=== PATIENT | female | born 1985 | race American Indian/Alaskan Native ===

== ENCOUNTER 2019-04-26 14:17 | Emergency (ER) | payer OTHER ==
--- NOTE | 2019-04-26 14:32 | Event Note ---
ED Screening Note Date of service: 04/26/19 Time: 14:30 ED Screening Note: 34 y o with paraguard IUD statind pelvic cramping and spotting x 4 days stating she cant feel her iud strings This initial assessment/diagnostic orders/clinical plan/treatment(s) is/are subject to change based on patients health status, clinical progression and re- assessment by fellow clinical providers in the ED. Further treatment and workup at subsequent clinical providers discretion. Patient/guardian urged not to elope from the ED as their condition may be serious if not clinically assessed and managed. Initial orders include: ua upt
[2019-04-26 15:18] LABS: HCG Qualitative,Urine Positive (Negative)
[2019-04-26 15:21] LABS: Bilirubin,Urine NEG (Negative); Blood,Urine LG (Negative); Color,Urine Yellow (Yellow); Mucus,Urine 1+ /HPF
[2019-04-26 15:29] LABS: RBC,Urine > 182.0 /HPF (0.0-6.0)
[2019-04-26 18:34] VITALS: BP 134/80
--- NOTE | 2019-04-26 21:42 | Ultrasound Report ---
Transabdominal and transvaginal OB pelvic ultrasound INDICATION / CLINICAL INFORMATION: Vaginal bleeding. COMPARISON: None available. FINDINGS: TRANSABDOMINAL: The uterus measures 9.8 x 4.6 x 8.0 cm. I do not identify an intrauterine . Neither ovary is seen. No abnormal mass or fluid collection is identified. Images of the urinary blad ty are normal. TRANSVAGINAL: There is an IUD well situated within the endometrial cavity. I do not identify an IUP. No fibroids are seen. The right ovary measures 3.5 x 2.3 x 3.6 cm and the left ovary 3.4 x 2.1 x 3.5 cm. There are a couple of subcentimeter follicles in the left ovary. I see no evidence of an extraova ly mass or free fluid. IMPRESSION: 1. No evidence of intrauterine or extrauterine . 2. IUD is well situated within the endometrial cavity. Signer Name: Derrek Wilson MD Signed: 04/26/2019 9:37 PM Workstation Name: [id number]
--- NOTE | 2019-04-26 22:04 | Emergency Department Report ---
ED Female HPI - General Chief complaint: Vaginal Bleeding Stated complaint: PELVIC PAIN/BLEEDING/IUD ISSUES Time Seen by Provider: 04/26/19 14:30 Source: patient Mode of arrival: Ambulatory Limitations: No Limitations - History of Present Illness Initial comments: pt is a 34 y o with paraguard IUD statind pelvic cramping and spotting x 4 days stating she cant feel her iud strings LMP 2 months ago , pt is P:4 A:q MD Complaint: vaginal bleeding Onset/Timin -: days(s) Location: suprapubic Radiation: suprapubic Severity: moderate Severity scale (0 -10): 4 Consistency: constant Improves with: none Worsens with: none Are you Now?: No Associated Symptoms: vaginal bleeding, nausea/vomiting - Related Data Sexually active: Yes Previous Rx's Medication Instructions Recorded Last Taken Type Acetaminophen [Acetaminophen TAB] 650 mg PO Q6HR PRN #30 tablet 04/26/19 Unknown Rx Allergies Allergy/AdvReac Type Severity Reaction Status Date / Time No Known Allergies Allergy Verified 04/26/19 14:20 ED Review of Systems ROS: Stated complaint: PELVIC PAIN/BLEEDING/IUD ISSUES Other details as noted in HPI Constitutional: denies: chills, fever Eyes: denies: eye pain, eye discharge, vision change ENT: denies: ear pain, throat pain Respiratory: denies: cough, shortness of breath, wheezing Cardiovascular: denies: chest pain, palpitations Endocrine: no symptoms reported Gastrointestinal: denies: abdominal pain, nausea, vomiting, diarrhea Genitourinary: urgency, dyspareunia Musculoskeletal: denies: back pain, joint swelling, arthralgia Skin: denies: rash, lesions Neurological: denies: headache, weakness, paresthesias Psychiatric: denies: anxiety, depression Hematological/Lymphatic: denies: easy bleeding, easy bruising ED Past Medical Hx - Past Medical History Previous Medical History?: No - Surgical History Past Surgical History?: No - Social History Smoking Status: Current Every Day Smoker Substance Use Type: Alcohol - Medications Home Medications: Home Medications Medication Instructions Recorded Confirmed Last Taken Type Acetaminophen [Acetaminophen TAB] 650 mg PO Q6HR PRN #30 tablet 04/26/19 Unknown Rx ED Physical Exam - General Limitations: No Limitations (for an injury on) General appearance: alert ( neurologic), in no apparent distress - Head Head exam: Present: atraumatic, normocephalic - Eye Eye exam: Present: normal appearance, PERRL, EOMI Pupils: Present: normal accommodation - ENT ENT exam: Present: normal orophraynx, mucous membranes moist, TM's normal bilaterally, normal external ear exam - Neck Neck exam: Present: normal inspection, full ROM. Absent: tenderness, lymphadenopathy, thyromegaly - Respiratory Respiratory exam: Present: normal lung sounds bilaterally. Absent: respiratory distress, wheezes, chest wall tenderness - Cardiovascular Cardiovascular Exam: Present: regular rate, normal rhythm, normal heart sounds. Absent: systolic murmur, diastolic murmur, rubs, gallop - GI/Abdominal GI/Abdominal exam: Present: soft, normal bowel sounds. Absent: distended, tenderness, bruit, hernia - Extremities Exam Extremities exam: Present: normal inspection, full ROM, normal capillary refill. Absent: tenderness, calf tenderness - Back Exam Back exam: Present: normal inspection, full ROM - Neurological Exam Neurological exam: Present: alert, oriented X3, normal gait, reflexes normal - Psychiatric Psychiatric exam: Present: normal affect, normal mood - Skin Skin exam: Present: warm, dry, intact, normal color. Absent: rash ED Course Vital Signs 04/26/19 04/26/19 14:28 18:33 Temperature 98.6 F 98.5 F Pulse Rate 72 65 Respiratory 20 16 Rate Blood Pressure 125/73 Blood Pressure 134/80 [Left] O2 Sat by Pulse 99 100 Oximetry ED Medical Decision Making - Radiology Data Radiology results: report reviewed, image reviewed Ordering Physician: ANNIE MEHTA NP Date of Service: 04/26/19 Procedure(s): OB transvaginal Accession Number(s): [id number] cc: ANNIE MEHTA NP Transabdominal and transvaginal OB pelvic ultrasound INDICATION / CLINICAL INFORMATION: Vaginal bleeding. COMPARISON: None available. FINDINGS: TRANSABDOMINAL: The uterus measures 9.8 x 4.6 x 8.0 cm. I do not identify an intrauterine . Neither ovary is seen. No abnormal mass or fluid collection is identified. Images of the urinary bladder are normal. TRANSVAGINAL: There is an IUD well situated within the endometrial cavity. I do not identify an IUP. No fibroids are seen. The right ovary measures 3.5 x 2.3 x 3.6 cm and the left ovary 3.4 x 2.1 x 3.5 cm. There are a couple of subcentimeter follicles in the left ovary. I see no evidence of an extraovarian mass or free fluid. IMPRESSION: 1. No evidence of intrauterine or extrauterine . 2. IUD is well situated within the endometrial cavity. Signer Name: Derrek Wilson MD Signed: 04/26/2019 9:37 PM Workstation Name: [id number] Transcribed By: RT Dictated By: Derrek Wilson MD Electronically Authenticated By: Derrek Wilosn MD Signed Date/Time: 04/26/192136 DD/ 33 TD/TT: - Medical Decision Making Ultrasound demonstrates intact IUD no IUP hCG is 153 pt will return in 2 days for repeat hcg, and US will follow up wtih pcp in 2-3 days pt verbalized agreement and understanding of same. pt dc'd to home in stable condition at this time Critical care attestation.: If time is entered above; I have spent that time in minutes in the direct care of this critically ill patient, excluding procedure time. ED Disposition Clinical Impression: IUD check up, Positive test, Threatened miscarriage Disposition: DC-01 TO HOME OR SELFCARE Is pt being admited?: No Does the pt Need Aspirin: No Condition: Stable Instructions: Dysmenorrhea (ED), (ED), Threatened Miscarriage (ED) Prescriptions: Acetaminophen [Acetaminophen TAB] 650 mg PO Q6HR PRN #30 tablet PRN Reason: Pain Referrals: NIKOS SCHNEIDER MD [Staff Physician] - 3-5 Days Forms: Work/School Release Form(ED) Time of Disposition: 22:31
== END 2019-04-26 22:55 | disposition home or self-care (01) ==
LOC: ED 14:17
DX: O20.0 Threatened abortion (principal); Z3A.01 Less than 8 weeks gestation of pregnancy
CPT/HCPCS: 36415; 76801; 76817; 81001; 81025; 84702; 86900; 86901

== ENCOUNTER 2019-04-28 20:44 | Emergency (ER) | payer SELFPAY ==
--- NOTE | 2019-04-28 22:00 | Emergency Department Report ---
Blank Doc - Documentation Documentation: This is a 34-year-old female that presents with left pelvic pain with vaginal bleeding. Stated had a positive test a few days ago. This initial assessment/diagnostic orders/clinical plan/treatment(s) is/are subject to change based on patient's health status, clinical progression and re- assessment by fellow clinical providers in the ED. Further treatment and workup at subsequent clinical providers discretion. Patient/guardians urged not to elope from the ED as their condition may be serious if not clinically assessed and managed. Initial orders include: 1- Patient sent to [facility] for further evaluation and treatment 2- labs 3- UA 4- US OB
[2019-04-28 22:47] LABS: Basophils # (Auto) 0.1 K/mm3 (0.0-0.1); Eosinophils # (Auto) 0.3 K/mm3 (0.0-0.4); Eosinophils % (Auto) 4.1 % (0.0-4.3); Hematocrit 36.7 % (30.3-42.9); Hemoglobin 12.2 gm/dl (10.1-14.3); Lymphocytes # (Auto) 2.2 K/mm3 (1.2-5.4); Lymphocytes % (Auto) 33.2 % (13.4-35.0); Mean Corpuscular HGB Conc 33 % (30-34); Mean Corpuscular Volume 87 fl (79-97); Monocytes # (Auto) 0.7 K/mm3 (0.0-0.8); Monocytes % (Auto) 11.1 % (0.0-7.3); Platelet Count 223 K/mm3 (140-440); Red Cell Distribution Width 15.6 % (13.2-15.2)
[2019-04-28 23:48] LABS: Bilirubin,Urine NEG (Negative); Blood,Urine LG (Negative); Color,Urine Yellow (Yellow); Mucus,Urine 1+ /HPF; Protein,Urine <15 mg/dL mg/dL (Negative)
--- NOTE | 2019-04-28 23:58 | Ultrasound Report ---
ULTRASOUND OBSTETRIC Duplex ultrasound with spectral technique of both ovaries INDICATION / CLINICAL INFORMATION: pelvic pain. TECHNIQUE: Transabdominal and Transvaginal. COMPARISON: OB ultrasound 04/26/2019 FINDINGS: Transabdominal OB ultrasound: IUD is again noted. No intrauterine is visualized. Uterus davie sures 8.7 x 4.8 x 5.4 cm. Neither ovary is visualized secondary bowel gas Transvaginal OB ultrasound: No intrauterine is visualized. Intrauterine device is again not ed in expected position. Right ovary appears within normal limits without cyst or mass measuring 3.5 x 1.6 x 1.9 cm. The left ovary measures 2.8 x 1.6 x 1.7 cm and contains several small follicular cyst s. There is no free pelvic fluid. Duplex ultrasound: Normal color Doppler and spectral waveforms are seen within both ovaries. IMPRESSION: 1. No IUP. 2. Several small simple left follicles. No free fluid. Signer Name: Isauro Kerr MD Signed: 04/28/2019 11:54 PM Workstation Name: [id number]
[2019-04-29] MEDS ORDERED: TYLENOL PO ONE (00:25)
--- NOTE | 2019-04-29 01:23 | Emergency Department Report ---
ED Abdominal Pain HPI - General Chief Complaint: Abdominal Pain Stated Complaint: MISCARRIAGE TREATMENT Time Seen by Provider: 04/28/19 21:58 Source: patient Mode of arrival: Ambulatory Limitations: No Limitations - History of Present Illness Initial Comments: Patient is a A0 34-year-old AA female who is approximately 2 or 3 weeks gestation who presents to the ED with persistent lower abdominal pain and vaginal bleeding for the last 1 week. Patient was initially evaluated in this ED about 2 days ago and was diagnosed with but the hCG Quant was low and therefore that was highly likely would having ectopic for which she was extensively evaluated. Patient was advised to follow-up with OB joint physician in 2 days for serial hCG Quant studies and further evaluation. Patient return to the ED today stating that her ANESTHETIC ASSISTANT physician referred her back to the ED for further evaluation and to rule out any ectopic or complete miscarriage. Patient denies lightheadedness, dizziness, fever, chills, nausea, vomiting, dysuria, urinary frequency and urgency or diarrhea MD Complaint: abdominal pain, other (vaginal bleeding) -: Gradual, week(s) (1) Location: suprapubic Radiation: none Migration to: no migration Severity: moderate Severity scale (0 -10): 5 Quality: cramping, aching Consistency: constant Improves With: nothing Worsens With: nothing Associated Symptoms: denies other symptoms. denies: nausea, vomiting, diarrhea, fever, chills, constipation, dysuria, hematemesis, melena, hematuria, anorexia, syncope - Related Data LMP Date: 04/04/19 LMP (females 10-50): 3 weeks Previous Rx's Medication Instructions Recorded Last Taken Type Acetaminophen [Acetaminophen TAB] 650 mg PO Q6HR PRN #30 tablet 04/26/19 Unknown Rx Allergies Allergy/AdvReac Type Severity Reaction Status Date / Time No Known Allergies Allergy Verified 04/26/19 14:20 ED Review of Systems ROS: Stated complaint: MISCARRIAGE TREATMENT Other details as noted in HPI Constitutional: denies: chills, fever Eyes: denies: eye pain, eye discharge, vision change ENT: denies: ear pain, throat pain Respiratory: denies: cough, shortness of breath, wheezing Cardiovascular: denies: chest pain, palpitations Endocrine: no symptoms reported Gastrointestinal: abdominal pain (lower). denies: nausea, diarrhea Genitourinary: other (Vaginal bleeding). denies: urgency, dysuria, discharge Musculoskeletal: denies: back pain, joint swelling, arthralgia Skin: denies: rash, lesions Neurological: denies: headache, weakness, paresthesias Psychiatric: denies: anxiety, depression Hematological/Lymphatic: denies: easy bleeding, easy bruising ED Past Medical Hx - Past Medical History Previous Medical History?: No - Surgical History Past Surgical History?: No - Social History Smoking Status: Current Every Day Smoker Substance Use Type: None - Medications Home Medications: Home Medications Medication Instructions Recorded Confirmed Last Taken Type Acetaminophen [Acetaminophen TAB] 650 mg PO Q6HR PRN #30 tablet 04/26/19 Unkno wn Rx ED Physical Exam - General Limitations: No Limitations General appearance: alert, in no apparent distress - Head Head exam: Present: atraumatic, normocephalic, normal inspection - Eye Eye exam: Present: normal appearance, PERRL, EOMI Pupils: Present: normal accommodation - ENT ENT exam: Present: normal exam, normal orophraynx, mucous membranes moist, TM's normal bilaterally, normal external ear exam - Neck Neck exam: Present: normal inspection, full ROM. Absent: tenderness, meningismus, lymphadenopathy, thyromegaly - Respiratory Respiratory exam: Present: normal lung sounds bilaterally. Absent: respiratory distress, wheezes, chest wall tenderness, accessory muscle use - Cardiovascular Cardiovascular Exam: Present: regular rate, normal rhythm, normal heart sounds. Absent: systolic murmur, diastolic murmur, rubs, gallop - GI/Abdominal GI/Abdominal exam: Present: soft, tenderness (mildly tender suprapubic area), normal bowel sounds. Absent: distended, guarding, rebound, hyperactive bowel sounds, hypoactive bowel sounds, organomegaly - Rectal Rectal exam: Present: deferred - Bi-manual exam: Present: other (Deferred, patient choice) - Extremities Exam Extremities exam: Present: normal inspection, full ROM, normal capillary refill - Back Exam Back exam: Present: normal inspection, full ROM. Absent: tenderness, CVA tenderness (R), CVA tenderness (L), muscle spasm, paraspinal tenderness - Neurological Exam Neurological exam: Present: alert, oriented X3, CN II-XII intact, normal gait, reflexes normal - Psychiatric Psychiatric exam: Present: normal affect, normal mood - Skin Skin exam: Present: warm, dry, intact, normal color. Absent: rash ED Course Vital Signs 04/28/19 21:58 Temperature 98.5 F Pulse Rate 82 Respiratory 18 Rate Blood Pressure 137/68 O2 Sat by Pulse 100 Oximetry - Reevaluation(s) Reevaluation #1: 04/29/19 01:34 Patient is a 34-year-old -Domin[place] female who presented to the ED with persistent vaginal bleeding and lower abdominal pain. Patient requested serial hCG Quant repeat from a recent visit. Lab test results are reviewed and are unremarkable except for hCG Quant which was 65.24, significantly reduced from the previous hCG Quant of 165 in the last 48 hours. Transvaginal ultrasound shows no IUP or heart rate. Several small simple left follicles noted. No free fluid. These results confirm the inevitability of the demise. Renetta catalan was discharged home and advised to maintain a complete pelvic rest, follow-up with her ANESTHETIC ASSISTANT physician in 2 days for reevaluation or return to the ED immediately if symptoms get worse. 04/29/19 01:36 ED Medical Decision Making - Lab Data Result diagrams: 04/28/19 22:27 - Radiology Data Radiology results: report reviewed, image reviewed Findings [facility] [address] [place] [address] Ultrasound Report Signed Patient: GEETHA YOUNG MR#: [id number] 4 : 1985 Acct:[id number] Age/Sex: 34 / F ADM Date: 04/28/19 Loc: ED Attending Dr: Ordering Physician: CHASE CRANE NP Date of Service: 04/28/19 Procedure(s): US OB transvaginal Accession Number(s): [id number] cc: CHASE CRANE NP ULTRASOUND OBSTETRIC Duplex ultrasound with spectral technique of both ovaries INDICATION / CLINICAL INFORMATION: pelvic pain. TECHNIQUE: Transabdominal and Transvaginal. COMPARISON: OB ultrasound 04/26/2019 FINDINGS: Transabdominal OB ultrasound: IUD is again noted. No intrauterine is visualized. Uterus measures 8.7 x 4.8 x 5.4 cm. Neither ovary is visualized secondary bowel gas Transvaginal OB ultrasound: No intrauterine is visualized. Intrauterine device is again noted in expected position. Right ovary appears within normal limits without cyst or mass measuring 3.5 x 1.6 x 1.9 cm. The left ovary measures 2.8 x 1.6 x 1.7 cm and contains several small follicular cysts. There is no free pelvic fluid. Duplex ultrasound: Normal color Doppler and spectral waveforms are seen within both ovaries. IMPRESSION: 1. No IUP. 2. Several small simple left follicles. No free fluid. Signer Name: Isauro Kerr MD Signed: 04/28/2019 11:54 PM Workstation Name: [id number] Transcribed By: TL Dictated By: Isauro Kerr MD Electronically Authenticated By: Isauro Kerr MD Signed Date/Time: 04/28/19 8820 - Medical Decision Making Patient is a 34-year-old -Domin[place] female who presented to the ED with persistent vaginal bleeding and lower abdominal pain. Patient requested serial hCG Quant repeat from a recent visit. Lab test results are reviewed and are unremarkable except for hCG Quant which was 65.24, significantly reduced from the previous hCG Quant of 165 in the last 48 hours. Transvaginal ultrasound shows no IUP or heart rate. Several small simple left follicles noted. No free fluid. These results confirm the inevitability of the demise. Renetta catalan was discharged home and advised to maintain a complete pelvic rest, follow-up with her ANESTHETIC ASSISTANT physician in 2 days for reevaluation or return to the ED immediately if symptoms get worse. - Differential Diagnosis Threatened miscarriage; Inevitable ; Ovarian cysts; UTI Critical care attestation.: If time is entered above; I have spent that time in minutes in the direct care of this critically ill patient, excluding procedure time. ED Disposition Clinical Impression: Inevitable spontaneous , Abdominal pain affecting , Vaginal bleeding in Disposition: -01 TO HOME OR SELFCARE Is pt being admited?: No Does the pt Need Aspirin: No Condition: Stable Instructions: Abdominal Pain (ED) Additional Instructions: Follow-up with your ANESTHETIC ASSISTANT physician in 2 days for further evaluation. Take medications for pain as needed. Maintain a complete pelvic rest. Return to the ED immediately if symptoms get worse. Referrals: PRIMARY CAREMD [Primary Care Provider] - 3-5 Days Time of Disposition: 01:23 Print Language: SAMI
[2019-04-29 02:01] VITALS: BP 132/88
== END 2019-04-29 02:02 | disposition home or self-care (01) ==
LOC: ED 20:44
DX: O03.9 Complete or unspecified spontaneous abortion without complication (principal); Z3A.01 Less than 8 weeks gestation of pregnancy
CPT/HCPCS: 36415; 76801; 76817; 81001; 84702; 85025

== ENCOUNTER 2020-09-11 13:29 | Emergency (ER) | payer MEDICAID ==
[2020-09-11 14:31] VITALS: BP 115/61
--- NOTE | 2020-09-11 14:31 | Event Note ---
ED Screening Note ED Screening Note: here with hematuria lmp 1/6 some cramping with urination no fever or chills no cough loss of taste and smell for 5 days This initial assessment/diagnostic orders/clinical plan/treatment(s) is/are subject to change based on patients health status, clinical progression and re- assessment by fellow clinical providers in the ED. Further treatment and workup at subsequent clinical providers discretion. Patient/guardian urged not to elope from the ED as their condition may be serious if not clinically assessed and managed. Initial orders include: ro uti
[2020-09-11 16:15] LABS: Bilirubin,Urine NEG (Negative); Blood,Urine NEG (Negative); Color,Urine Yellow (Yellow); Mucus,Urine FEW /HPF; Protein,Urine <15 mg/dL mg/dL (Negative); Urobilinogen,Urine < 2.0 mg/dL (<2.0)
[2020-09-11 16:25] LABS: HCG Qualitative,Urine Negative (Negative)
--- NOTE | 2020-09-11 16:31 | Emergency Department Report ---
ED Dysuria HPI - HPI Chief Complaint: Urogenital-Female Stated Complaint: LOSS OF SMELL; BLOOD IN URINE Time Seen by Provider: 09/11/20 14:29 Duration: Today Location of Discomfort: Suprapubic Severity: None Symptoms: Dysuria: No, Frequency: No, Suprapubic Pain: No, Flank Pain: No, Fever: No, Hematuria: Yes, Abdominal Pain: No, Previous UTI's: Yes Other History: 25 yo co hematuria. no dysuria. no fever or chills. no abd or back pain. has had cystitis in the past when she does not drink water. no n/v or s/s consistent with k stone. recent quarenteen for covid and loss of smell. no cp. no sob. no fever. vs normal on exam ED Review of Systems ROS: Stated complaint: LOSS OF SMELL; BLOOD IN URINE Other details as noted in HPI Comment: All other systems reviewed and negative ED Past Medical Hx - Past Medical History Previous Medical History?: No - Surgical History Past Surgical History?: No - Family History Family history: no significant - Social History Smoking Status: Current Every Day Smoker Substance Use Type: None - Medications Home Medications: Home Medications Medication Instructions Recorded Confirmed Last Taken Type Sulfamethoxazole/Trimethoprim 1 each PO BID #6 tablet 09/11/20 Unknown Rx [Bactrim DS TAB] Dysuria Exam - Exam General: Vital signs noted. No distress. Alert and acting appropriately. Exam: Yes Moist Mucous Membranes, No CVA Tenderness, No Abdominal Tenderness, No Rigidity or Guarding Labs: Lab Results 09/11/20 Range/Units Unknown Urine Color Yellow (Yellow) Urine Turbidity Clear (Clear) Urine pH 5.0 (5.0-7.0) Ur Specific [place] 1.020 (1.003-1.030) Urine Protein <15 mg/dl (Negative) mg/dL Urine Glucose (UA) Neg (Negative) mg/dL Urine Ketones Neg (Negative) mg/dL Urine Blood Neg (Negative) Urine Nitrite Neg (Negative) Urine Bilirubin Neg (Negative) Urine Urobilinogen < 2.0 (<2.0) mg/dL Ur Leukocyte Esterase Neg (Negative) Urine WBC (Auto) 4.0 (0.0-6.0) /HPF Urine RBC (Auto) 2.0 (0.0-6.0) /HPF U Epithel Cells (Auto) 1.0 (0-13.0) /HPF Urine Mucus Few /HPF Urine HCG, Qual Negative (Negative) ED Course Vital Signs 09/11/20 14:30 Temperature 98.3 F Pulse Rate 62 Respiratory 16 Rate Blood Pressure 115/61 [Right] O2 Sat by Pulse 98 Oximetry ED Medical Decision Making - Medical Decision Making Lab Results 09/11/20 Range/Units Unknown Urine Color Yellow (Yellow) Urine Turbidity Clear (Clear) Urine pH 5.0 (5.0-7.0) Ur Specific [place] 1.020 (1.003-1.030) Urine Protein <15 mg/dl (Negative) mg/dL Urine Glucose (UA) Neg (Negative) mg/dL Urine Ketones Neg (Negative) mg/dL Urine Blood Neg (Negative) Urine Nitrite Neg (Negative) Urine Bilirubin Neg (Negative) Urine Urobilinogen < 2.0 (<2.0) mg/dL Ur Leukocyte Esterase Neg (Negative) Urine WBC (Auto) 4.0 (0.0-6.0) /HPF Urine RBC (Auto) 2.0 (0.0-6.0) /HPF U Epithel Cells (Auto) 1.0 (0-13.0) /HPF Urine Mucus Few /HPF Urine HCG, Qual Negative (Negative) Vital Signs 09/11/20 14:30 Temperature 98.3 F Pulse Rate 62 Respiratory 16 Rate Blood Pressure 115/61 [Right] O2 Sat by Pulse 98 Oximetry urine culture pending pt educated on cystitis. dc home with dc poc and pcp follow up. she verbalizes understanding. - Differential Diagnosis ro uti Critical care attestation.: If time is entered above; I have spent that time in minutes in the direct care of this critically ill patient, excluding procedure time. ED Disposition Clinical Impression: Hematuria Disposition: DC-01 TO HOME OR SELFCARE Is pt being admited?: No Does the pt Need Aspirin: No Condition: Stable Instructions: Hematuria, Adult Additional Instructions: drink a lot of water motrin or tylenol for pain follow up with pcp referral below cranberry juice- unsweet med as ordered Prescriptions: Sulfamethoxazole/Trimethoprim [Bactrim DS TAB] 1 each PO BID #6 tablet Referrals: EVA GUILLEN MD [Staff Physician] - 3-5 Days Time of Disposition: 16:29
== END 2020-09-11 16:30 | disposition home or self-care (01) ==
LOC: ED 13:29
DX: R31.9 Hematuria, unspecified (principal); F17.200 Nicotine dependence, unspecified, uncomplicated; Z79.899 Other long term (current) drug therapy
CPT/HCPCS: 81001; 81025; 87086; 99283